=== PATIENT | female | born 1935 | race Caucasian/White ===

== ENCOUNTER 2025-02-17 23:23 | Inpatient (IN) | payer OTHER ==
[2025-02-17 23:34] VITALS: BMI 22.6
[2025-02-18 00:30] LABS: HEMOGLOBIN 9.1 g/dL (11.2-15.7); PLATELET COUNT 37 x10^3/uL (182-369)
[2025-02-18 00:32] LABS: HEMATOCRIT 28.4 % (34.1-44.9); MEAN CELL VOLUME 115.9 fl (79.4-94.8); MEAN PLT VOLUME 12.6 fl (9.4-12.3); RDW 17.5 % (12.5-17.0)
[2025-02-18] MEDS ORDERED: ACETAMINOPHEN INJECTION 100 ML ONE ×2 (00:33→10:28)
[2025-02-18 00:36] LABS: VENOUS BASE EXCESS 0.3 mmol/L (-2-2); VENOUS O2 SATURATION 19.7 % (70-80); VENOUS PCO2 48.8 mmHg (38-52); VENOUS PH 7.351 (7.310-7.410)
[2025-02-18] MEDS: ACETAMINOPHEN 1000 MG/100 ML BAG IVPB ONE (00:36)
[2025-02-18 00:40] LABS: INR 1.35 (0.83-1.09); PROTHROMBIN TIME (PATIENT) 14.9 SEC (9.7-13.0)
[2025-02-18 00:43] LABS: ACTIVATED PTT 35.1 SECONDS (25.2-36.5)
[2025-02-18 01:10] LABS: POTASSIUM 5.1 mmol/L (3.5-5.1)
[2025-02-18 01:12] LABS: ALBUMIN 3.2 g/dl (3.4-5.0)
[2025-02-18 01:13] LABS: BLOOD UREA NITROGEN 48.6 mg/dL (7-18)
[2025-02-18 01:16] LABS: CREATININE 2.7 mg/dL (0.55-1.3)
[2025-02-18 04:19] LABS: EPI CELLS 25 /uL (0-25.1); HYALINE CASTS 3 /uL (0-3.1); URINE APPEARANCE TURBID; URINE BACTERIA 2 /uL (0-1359); URINE BILIRUBIN NEGATIVE (NEGATIVE); URINE COLOR YELLOW; URINE GLUCOSE (UA) NEGATIVE (NEGATIVE); URINE KETONE NEGATIVE (NEGATIVE); URINE LEUK ESTERASE NEGATIVE (NEGATIVE); URINE NITRITE NEGATIVE (NEGATIVE); URINE PROTEIN 1+ (NEGATIVE); URINE RBC 13 /uL (0-23.9); URINE UROBILINOGEN 0.2 mg/dL (0.2-1.0); URINE WBC 17 /uL (0-25.8)
[2025-02-18 04:32] LABS: N-TERMINAL BNP 5928.1 pg/ml (5-450)
[2025-02-18] MEDS: PREGABALIN 25 MG CAPSULE PO SCH ×2 (06:18→21:35)
[2025-02-18] MEDS: FUROSEMIDE 40 MG/4 ML INJECTABLE VIAL IVPUSH ONE (06:18)
[2025-02-18 07:07] LABS: EOSINOPHIL % 3.7 % (0.7-5.8); EOSINOPHILS # 0.05 x10^3/uL (0.04-0.36); HEMATOCRIT 25.7 % (34.1-44.9); HEMOGLOBIN 8.2 g/dL (11.2-15.7); MCHC 31.9 g/dl (32.2-35.5); MEAN CELL VOLUME 116.8 fl (79.4-94.8); MEAN PLT VOLUME 12.6 fl (9.4-12.3); MONOCYTE # 0.02 x10^3/uL (0.24-0.86); MONOCYTE % 1.5 % (4.7-12.5); PLATELET COUNT 32 x10^3/uL (182-369); RDW 17.5 % (12.5-17.0)
[2025-02-18 07:33] LABS: POTASSIUM 5.5 mmol/L (3.5-5.1)
[2025-02-18 07:35] LABS: CALCIUM 8.7 mg/dL (8.5-10.1)
[2025-02-18 07:36] LABS: ALBUMIN 3.1 g/dl (3.4-5.0); BLOOD UREA NITROGEN 50.3 mg/dL (7-18)
[2025-02-18 07:39] LABS: CREATININE 2.8 mg/dL (0.55-1.3)
[2025-02-18 07:41] LABS: TOT PROT 6.5 g/dl (6.4-8.2)
[2025-02-18] MEDS ORDERED: APIXABAN 2.5 MG TABLET PO SCH (10:00)
[2025-02-18] MEDS: ACETAMINOPHEN 1000 MG/100 ML BAG IVPB PRN (10:32)
[2025-02-18] MEDS: AMIODARONE HCL 200 MG TABLET PO SCH (12:00)
[2025-02-18 16:22] LABS: HIV INTERPRETATION NEGATIVE (NEGATIVE)
[2025-02-18 16:25] LABS: N-TERMINAL BNP 5875.2 pg/ml (5-450)
[2025-02-18 17:18] LABS: HEPATITIS B SURF AG NON-MATERN NON-REACTIVE (NONREACTIVE)
[2025-02-18 17:47] LABS: HCV DIAGNOSTIC IN-HOUSE W/RFLX NON-REACTIVE (NONREACTIVE)
[2025-02-18] MEDS ORDERED: ONDANSETRON 4 MG/2 ML VIAL IVPUSH PRN (18:31)
[2025-02-18 19:09] LABS: MAGNESIUM 2.5 mg/dL (1.8-2.4)
[2025-02-18] MEDS: SODIUM POLYSTYRENE SULFONATE 15 GM/60 ML BOTTLE PO ONE (20:11)
[2025-02-18] MEDS ORDERED: ROSUVASTATIN CA 40 MG TABLET PO SCH (22:00)
[2025-02-19 07:43] LABS: POTASSIUM 4.7 mmol/L (3.5-5.1)
[2025-02-19 07:46] LABS: MEAN CELL VOLUME 116.9 fl (79.4-94.8); PLATELET COUNT 36 x10^3/uL (182-369); RDW 17.5 % (12.5-17.0)
[2025-02-19 07:48] LABS: HEMATOCRIT 27.7 % (34.1-44.9); HEMOGLOBIN 8.9 g/dL (11.2-15.7); MCHC 32.1 g/dl (32.2-35.5); Reticulocyte % 1.29 % (0.5-1.7)
[2025-02-19 07:52] LABS: ALBUMIN 3.2 g/dl (3.4-5.0)
[2025-02-19 07:55] LABS: CREATININE 2.7 mg/dL (0.55-1.3)
[2025-02-19 07:57] LABS: BILIRUBIN,TOTAL 1.5 mg/dL (0.2-1); TOT PROT 7.1 g/dl (6.4-8.2)
[2025-02-19 09:52] LABS: ARTERIAL BLD GAS O2 SATURATION 97.3 % (95-98); ARTERIAL BLOOD GAS BASE EXCESS 1.3 mmol/L (-2-2); ARTERIAL BLOOD GAS PO2 91.9 mmHg (80-100); ARTERIAL BLOOD GAS pH 7.433 (7.350-7.450); O2 CONTENT 1.52 % vol
[2025-02-19 09:53] LABS: ALLENS TEST POSITIVE
[2025-02-19] MEDS: ACETAMINOPHEN 1000 MG/100 ML BAG IVPB SCH (12:27)
[2025-02-19] MEDS: SODIUM CHLORIDE 0.45% 1,000 ML IV SCH (17:27)
[2025-02-19] MEDS: CEFTRIAXONE 1 G/50 ML PREMIX 50 ML IVPB SCH (19:59)
[2025-02-19] MEDS: PREGABALIN 50 MG CAPSULE PO SCH (21:41)
[2025-02-19 22:30] LABS: HEMOGLOBIN 7.6 g/dL (11.2-15.7)
[2025-02-19 22:31] LABS: HEMATOCRIT 23.5 % (34.1-44.9); MCHC 32.3 g/dl (32.2-35.5); MEAN CELL VOLUME 116.9 fl (79.4-94.8); MEAN PLT VOLUME 11.7 fl (9.4-12.3); PLATELET COUNT 27 x10^3/uL (182-369); RDW 17.5 % (12.5-17.0)
[2025-02-20 08:00] LABS: INR 1.18 (0.83-1.09)
[2025-02-20 08:20] LABS: HEMATOCRIT 24.2 % (34.1-44.9); HEMOGLOBIN 7.6 g/dL (11.2-15.7); MCHC 31.4 g/dl (32.2-35.5); MEAN CELL VOLUME 118.6 fl (79.4-94.8); PLATELET COUNT 29 x10^3/uL (182-369); RDW 17.1 % (12.5-17.0)
[2025-02-20 08:22] LABS: POTASSIUM 4.5 mmol/L (3.5-5.1)
[2025-02-20 08:25] LABS: BLOOD UREA NITROGEN 42.8 mg/dL (7-18); CALCIUM 8.6 mg/dL (8.5-10.1)
[2025-02-20 08:29] LABS: CREATININE 2.6 mg/dL (0.55-1.3)
[2025-02-20 08:30] LABS: BILIRUBIN,TOTAL 1.2 mg/dL (0.2-1); TOT PROT 6.3 g/dl (6.4-8.2)
[2025-02-20] MEDS: oxyCODONE HCL 5 MG TABLET PO ONE (10:51)
[2025-02-20] MEDS: morphine CARPU-JECT 2 MG/1 ML DISP.SYRIN IM ONE (16:09)
[2025-02-20] MEDS ORDERED: GABAPENTIN 100 MG CAPSULE PO SCH (22:00)
[2025-02-20] MEDS: GABAPENTIN 100 MG CAPSULE PO SCH (22:38)
[2025-02-21 03:21] LABS: HEMATOCRIT 26.6 % (34.1-44.9); HEMOGLOBIN 8.5 g/dL (11.2-15.7); MEAN CELL VOLUME 117.2 fl (79.4-94.8); MEAN PLT VOLUME 10.5 fl (9.4-12.3); PLATELET COUNT 114 x10^3/uL (182-369); RDW 16.9 % (12.5-17.0)
[2025-02-21 07:17] LABS: HEMOGLOBIN 7.9 g/dL (11.2-15.7); MCHC 31.6 g/dl (32.2-35.5); PLATELET COUNT 104 x10^3/uL (182-369)
[2025-02-21 07:18] LABS: MEAN CELL VOLUME 116.8 fl (79.4-94.8); MEAN PLT VOLUME 10.5 fl (9.4-12.3); RDW 16.8 % (12.5-17.0)
[2025-02-21 07:30] LABS: POTASSIUM 4.8 mmol/L (3.5-5.1)
[2025-02-21 07:34] LABS: BLOOD UREA NITROGEN 33.3 mg/dL (7-18)
[2025-02-21 07:37] LABS: CREATININE 2.2 mg/dL (0.55-1.3)
[2025-02-21 07:39] LABS: BILIRUBIN,TOTAL 1.1 mg/dL (0.2-1); TOT PROT 6.5 g/dl (6.4-8.2)
[2025-02-21] MEDS: oxyCODONE HCL 5 MG TABLET PO PRN (09:48)
[2025-02-21] MEDS: DOXYCYCLINE HYCLATE 100 MG TABLET PO SCH (09:48)
[2025-02-21] MEDS ORDERED: FENTANYL CITRATE/PF 50 MCG/ML VIAL ONE (11:02)
[2025-02-21] MEDS ORDERED: MIDAZOLAM HCL 2 MG/2 ML SINGLE DOSE VIAL ONE (11:02)
[2025-02-21] MEDS: SODIUM CHLORIDE 500 ML IV ONE (18:07)
[2025-02-21 19:39] LABS: HEMATOCRIT 19.7 % (34.1-44.9); HEMOGLOBIN 6.2 g/dL (11.2-15.7); MCHC 31.5 g/dl (32.2-35.5); MEAN CELL VOLUME 119.4 fl (79.4-94.8); MEAN PLT VOLUME 10.1 fl (9.4-12.3); PLATELET COUNT 67 x10^3/uL (182-369); RDW 16.9 % (12.5-17.0)
[2025-02-21 21:54] LABS: HEMATOCRIT 24.1 % (34.1-44.9); HEMOGLOBIN 7.6 g/dL (11.2-15.7); MCHC 31.5 g/dl (32.2-35.5); MEAN CELL VOLUME 117.6 fl (79.4-94.8); PLATELET COUNT 77 x10^3/uL (182-369); RDW 17.2 % (12.5-17.0)
[2025-02-22] MEDS: dilTIAZem HCL 50 MG/10 ML - 10 ML VIAL IVPUSH ONE (06:15)
[2025-02-22] MEDS ORDERED: METOPROLOL TARTRATE 5 MG/5 ML VIAL ONE (07:12)
[2025-02-22] MEDS ORDERED: AMIODARONE HCL 200 MG TABLET PO SCH ×2 (10:00→22:00)
[2025-02-22] MEDS: METOPROLOL TARTRATE 5 MG/5 ML VIAL IVPUSH ONE (11:05)
[2025-02-22] MEDS: AMIODARONE HCL 200 MG TABLET PO SCH (12:15)
[2025-02-22] MEDS: METOPROLOL TARTRATE 5 MG/5 ML VIAL IVPUSH PRN (17:31)
[2025-02-22] MEDS: DIGOXIN 0.5 MG/2 ML AMPUL IVPUSH ONE (18:43)
[2025-02-23] MEDS: DIGOXIN 0.5 MG/2 ML AMPUL IVPUSH ONE ×2 (00:58→06:26)
[2025-02-23 06:57] LABS: HEMATOCRIT 24.1 % (34.1-44.9); HEMOGLOBIN 7.9 g/dL (11.2-15.7); MCHC 32.8 g/dl (32.2-35.5); MEAN CELL VOLUME 113.1 fl (79.4-94.8); MEAN PLT VOLUME 10.4 fl (9.4-12.3); PLATELET COUNT 57 x10^3/uL (182-369); RDW 16.4 % (12.5-17.0)
[2025-02-23 07:26] LABS: POTASSIUM 4.3 mmol/L (3.5-5.1)
[2025-02-23 07:38] LABS: CALCIUM 8.7 mg/dL (8.5-10.1)
[2025-02-23 07:39] LABS: ALBUMIN 2.8 g/dl (3.4-5.0); BLOOD UREA NITROGEN 22.5 mg/dL (7-18)
[2025-02-23 07:42] LABS: CREATININE 1.6 mg/dL (0.55-1.3)
[2025-02-23 07:43] LABS: BILIRUBIN,TOTAL 1.2 mg/dL (0.2-1); TOT PROT 5.9 g/dl (6.4-8.2)
[2025-02-23] MEDS: metoPROLOL SUCCINATE 25 MG TAB.SR.24H (FP) PO SCH (10:08)
[2025-02-23] MEDS: TRIMETHOBENZAMIDE HCL 200MG/2ML INJ IM ONE (11:25)
[2025-02-23] MEDS: METOCLOPRAMIDE HCL INJECTION 10 MG/2 ML VIAL IVPUSH ONE (12:35)
[2025-02-23 14:07] LABS: C-ANCA <1:20 titer (Neg:<1:20)
[2025-02-23 22:05] VITALS: RESP 18
[2025-02-24 00:10] VITALS: BP 143/83; PULSE 97; TEMP 98
[2025-02-25 10:07] LABS: METHYLMALONIC ACID- 288 nmol/L (0-378)
[2025-02-28 10:07] LABS: METHYLMALONIC ACID- 295 nmol/L (0-378)
== END 2025-02-24 00:10 | disposition short-term general hospital (02) | DRG 834 ==
LOC: JER 23:23 → JERBED 02-18 03:41 → J4S 02-18 18:52
PROVIDERS: ADMIT Student in an Organized Health Care Education/Training Program; ATTEND Internal Medicine
PROC: 30233R1 Transfusion of Nonautologous Platelets into Peripheral Vein, Percutaneous Approach (ICD-10-PCS; 2025-02-20)
PROC: 07DR3ZX Extraction of Iliac Bone Marrow, Percutaneous Approach, Diagnostic (ICD-10-PCS; principal; 2025-02-21)
PROC: 079T3ZZ Drainage of Bone Marrow, Percutaneous Approach (ICD-10-PCS; 2025-02-21)
DX: C92.00 Acute myeloblastic leukemia, not having achieved remission (principal); G93.41 Metabolic encephalopathy; J18.9 Pneumonia, unspecified organism; D61.818 Other pancytopenia; I13.0 Hypertensive heart and chronic kidney disease with heart failure and stage 1 through stage 4 chronic kidney disease, or unspecified chronic kidney disease; B02.29 Other postherpetic nervous system involvement; I47.10 Supraventricular tachycardia, unspecified; N17.9 Acute kidney failure, unspecified; I50.22 Chronic systolic (congestive) heart failure; N18.9 Chronic kidney disease, unspecified; D53.9 Nutritional anemia, unspecified; R00.1 Bradycardia, unspecified; D69.6 Thrombocytopenia, unspecified; R09.02 Hypoxemia; I48.0 Paroxysmal atrial fibrillation
CPT/HCPCS: 0241U-QW; 20225; 36415; 36430; 36511; 36600; 70450-TC; 71045-TC-FY; 71250-TC; 74176-TC; 76775-TC; 77012-TC; 80053; 81003; 82525; 82533; 82570; 82607; 82728; 82746; 82803; 82962; 83010; 83520; 83540; 83550; 83615; 83735; 83825; 83880; 83921; 84155; 84156; 84165; 84300; 84443; 84484; 85025; 85027; 85610; 85730; 86038; 86160; 86256; 86704; 86705; 86738; 86747; 86803; 86850; 86900; 86901; 87040; 87086; 87340; 87389; 87633; 87799; 87899; 88300-TC; 93005; 93010; 93306-TC; 99285-25; J0131; P9037; P9038